=== PATIENT | male | born 1940 | race Caucasian/White ===

== ENCOUNTER 2016-10-12 09:38 | Observation (INO) | payer OTHER ==
[2016-10-12 10:16] LABS: % IMMATURE GRANULYOCYTES 0.4 % (0.0-1.1); ABSOLUTE IMMATURE GRANULOCYTES 0.02 10^3/uL (0.00-0.10); ADD DIFF? NO; ADD MORPH? NO; ADD SCAN? NO; ATYPICAL LYMPHOCYTE FLAG 0 (0-99); FRAGMENT RBC FLAG 0 (0-99); HEMATOCRIT 47.3 % (40.0-51.0); HEMOGLOBIN 16.9 g/dL (13.7-17.5); LEFT SHIFT FLG 0 (0-99); LIPEMIA HEMOLYSIS FLAG 90 (0-99); MEAN CELL HEMOGLOBIN 33.3 pg (27.9-34.1); MEAN CELL HEMOGLOBIN CONCENTR. 35.7 g/dL (32.4-36.7); MEAN CELL VOLUME 93.3 fL (81.5-99.8); MEAN PLATELET VOLUME 10.3 fL (8.7-11.7); PLATELET CLUMPS FLAG 10 (0-99); PLATELET COUNT 262 10^3/uL (150-400); RED BLOOD CELL COUNT 5.07 10^6/uL (4.40-6.38); RED CELL DISTRIBUTION WIDTH 12.8 % (11.5-15.2)
[2016-10-12 10:25] LABS: INR 1.18 (0.83-1.16)
[2016-10-12 10:26] LABS: APTT 34.6 SEC (23.0-38.0)
[2016-10-12 10:35] LABS: ALANINE AMINOTRANSFERASE 43 IU/L (21-72); ALBUMIN 4.4 g/dL (3.5-5.0); ALKALINE PHOSPHATASE 57 IU/L (38-126); ANION GAP 11 mEq/L (8-16); ASPARTATE AMINOTRANSFERASE 42 IU/L (17-59); BILIRUBIN,TOTAL 1.5 mg/dL (0.1-1.4); BILIRUBIN-CONJUGATED 0.2 mg/dL (0.0-0.5); BILIRUBIN-UNCONJUGATED 1.3 mg/dL (0.0-1.1); CALCIUM 9.6 mg/dL (8.5-10.4); CARBON DIOXIDE 25 mEq/l (22-31); CHLORIDE 105 mEq/L (97-110); CREATININE 0.9 mg/dL (0.7-1.3); GLOMERULAR FILTRATION RATE > 60; GLUCOSE 90 mg/dL (70-100); POTASSIUM 4.8 mEq/L (3.5-5.2); SODIUM 141 mEq/L (134-144); TOTAL PROTEIN 7.2 g/dL (6.3-8.2)
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
[2016-10-12] MEDS ORDERED: NS 1,000 ML IV ONE (11:00)
[2016-10-12] MEDS ORDERED: ONDANSETRON 4 MG/2 ML VIAL ONE (11:07)
[2016-10-12] MEDS ORDERED: ONDANSETRON 4 MG/2 ML VIAL IVP ONE (11:14)
[2016-10-12 12:20] LABS: % IMMATURE GRANULYOCYTES 0.2 % (0.0-1.1); ABSOLUTE IMMATURE GRANULOCYTES 0.01 10^3/uL (0.00-0.10); ADD DIFF? NO; ADD MORPH? NO; ADD SCAN? NO; ATYPICAL LYMPHOCYTE FLAG 0 (0-99); FRAGMENT RBC FLAG 0 (0-99); HEMATOCRIT 45.7 % (40.0-51.0); HEMOGLOBIN 16.1 g/dL (13.7-17.5); LEFT SHIFT FLG 0 (0-99); LIPEMIA HEMOLYSIS FLAG 90 (0-99); MEAN CELL HEMOGLOBIN 33.4 pg (27.9-34.1); MEAN CELL HEMOGLOBIN CONCENTR. 35.2 g/dL (32.4-36.7); MEAN CELL VOLUME 94.8 fL (81.5-99.8); MEAN PLATELET VOLUME 10.5 fL (8.7-11.7); PLATELET CLUMPS FLAG 0 (0-99); PLATELET COUNT 237 10^3/uL (150-400); RED BLOOD CELL COUNT 4.82 10^6/uL (4.40-6.38); RED CELL DISTRIBUTION WIDTH 12.6 % (11.5-15.2)
[2016-10-12 12:36] LABS: INR 1.37 (0.83-1.16); PROTIME(PATIENT) 16.9 SEC (12.0-15.0)
[2016-10-12 12:37] LABS: APTT 38.8 SEC (23.0-38.0)
[2016-10-12] MEDS ORDERED: HYDROmorphONE/DILAUDID 1 MG/ML SYR IVP PRN (12:57)
[2016-10-12] MEDS ORDERED: ONDANSETRON DISINTEGRATING 4 MG TAB PO PRN (12:57)
[2016-10-12] MEDS ORDERED: HYDROmorphONE/DILAUDID 2 MG TAB PO PRN (12:57)
[2016-10-12] MEDS ORDERED: ONDANSETRON 4 MG/2 ML VIAL IVP PRN (12:57)
[2016-10-12] MEDS ORDERED: ACETAMINOPHEN 325 MG TAB PO PRN (12:57)
[2016-10-12] MEDS ORDERED: NS 1,000 ML IV SCH (13:00)
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
[2016-10-12] MEDS ORDERED: ANTIVENIN CROTALIDAE FAB IV ONE (13:30)
[2016-10-12] MEDS ORDERED: NS IV ONE (13:30)
[2016-10-12] MEDS ORDERED: BISACODYL 10 MG SUPP PR PRN (13:55)
[2016-10-12] MEDS ORDERED: LACTULOSE 20 GM/30 ML UDCUP PO PRN (13:55)
[2016-10-12] MEDS ORDERED: MAGNESIUM HYDROXIDE 30 ML UDCUP PO PRN (13:55)
[2016-10-12] MEDS ORDERED: POLYETHYLENE GLYCOL 3350 17 GM PKT PO PRN (13:55)
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
[2016-10-12 17:37] LABS: INR 1.51 (0.83-1.16); PROTIME(PATIENT) 18.2 SEC (12.0-15.0)
[2016-10-12] MEDS ORDERED: ANTIVENIN CROTALIDAE FAB IV SCH (18:00)
[2016-10-12] MEDS ORDERED: NS IV SCH (18:00)
[2016-10-12] MEDS: ACYCLOVIR 400 MG TAB PO SCH (20:01)
[2016-10-12] MEDS: SENNOSIDES/DOCUSATE SODIUM TAB PO SCH (20:03)
[2016-10-12] MEDS: ANTIVENIN CROTALIDAE FAB IV SCH (20:30)
[2016-10-12] MEDS: NS IV SCH (20:30)
[2016-10-12] MEDS ORDERED: LORazepam 0.5 MG TAB PO PRN (20:58)
[2016-10-12] MEDS ORDERED: TAMSULOSIN HCL 0.4 MG CAP PO SCH (21:00)
[2016-10-12] MEDS ORDERED: ATORVASTATIN CALCIUM 40 MG TAB PO SCH (21:00)
[2016-10-12] MEDS: CYCLOSPORINE 0.05% 1 EACH BOX EACHEYE SCH (21:30)
[2016-10-12 22:51] LABS: INR 1.45 (0.83-1.16); PROTIME(PATIENT) 17.6 SEC (12.0-15.0)
[2016-10-12 22:52] LABS: APTT 38.8 SEC (23.0-38.0)
[2016-10-13] MEDS ORDERED: NS IV SCH
[2016-10-13] MEDS ORDERED: ANTIVENIN CROTALIDAE FAB IV SCH
[2016-10-13] MEDS: NS IV SCH ×2 (02:21→08:25)
[2016-10-13] MEDS: ANTIVENIN CROTALIDAE FAB IV SCH ×2 (02:21→08:25)
[2016-10-13 05:05] LABS: % IMMATURE GRANULYOCYTES 0.4 % (0.0-1.1); ABSOLUTE IMMATURE GRANULOCYTES 0.03 10^3/uL (0.00-0.10); ADD DIFF? NO; ADD MORPH? NO; ADD SCAN? NO; ATYPICAL LYMPHOCYTE FLAG 0 (0-99); FRAGMENT RBC FLAG 0 (0-99); HEMATOCRIT 40.5 % (40.0-51.0); HEMOGLOBIN 14.2 g/dL (13.7-17.5); LEFT SHIFT FLG 0 (0-99); LIPEMIA HEMOLYSIS FLAG 90 (0-99); MEAN CELL HEMOGLOBIN 33.6 pg (27.9-34.1); MEAN CELL HEMOGLOBIN CONCENTR. 35.1 g/dL (32.4-36.7); MEAN CELL VOLUME 95.7 fL (81.5-99.8); MEAN PLATELET VOLUME 10.3 fL (8.7-11.7); PLATELET CLUMPS FLAG 0 (0-99); PLATELET COUNT 215 10^3/uL (150-400); RED BLOOD CELL COUNT 4.23 10^6/uL (4.40-6.38); RED CELL DISTRIBUTION WIDTH 12.9 % (11.5-15.2)
[2016-10-13 05:09] LABS: INR 1.35 (0.83-1.16); PROTIME(PATIENT) 16.7 SEC (12.0-15.0)
[2016-10-13 05:10] LABS: APTT 38.4 SEC (23.0-38.0)
[2016-10-13 05:21] LABS: ALANINE AMINOTRANSFERASE 33 IU/L (21-72); ALKALINE PHOSPHATASE 46 IU/L (38-126); ANION GAP 7 mEq/L (8-16); ASPARTATE AMINOTRANSFERASE 31 IU/L (17-59); BILIRUBIN,TOTAL 1.8 mg/dL (0.1-1.4); CALCIUM 8.3 mg/dL (8.5-10.4); CARBON DIOXIDE 24 mEq/l (22-31); CHLORIDE 107 mEq/L (97-110); CREATININE 0.9 mg/dL (0.7-1.3); GLOMERULAR FILTRATION RATE > 60; GLUCOSE 86 mg/dL (70-100); POTASSIUM 4.3 mEq/L (3.5-5.2); SODIUM 138 mEq/L (134-144); TOTAL PROTEIN 5.5 g/dL (6.3-8.2)
[2016-10-13 08:30] VITALS: TEMP 97.7
[2016-10-13] MEDS ORDERED: OMEGA-3 FATTY ACIDS 1,000 MG CAP PO SCH (09:00)
[2016-10-13] MEDS ORDERED: Herbals/Supplements -Info Only PO SCH (09:00)
[2016-10-13] MEDS ORDERED: PANTOPRAZOLE SODIUM 40 MG TAB PO SCH (09:00)
--- NOTE | 2016-10-13 09:21 | PDINTPN ---
Pediatric Acute Care Unit Nurse Progress Note Assessment/Plan: Assessment: * Rattle snake bite-3rd maintenance infusion of CroFab currently infusing. Hand is markedly improved. INR is slightly high hand fibrinogen remained stable. Plan: Continue infusion of CroFab Recheck INR and fibrinogen Anticipate discharge home today Subjective: Resting comfortably. Left hand feels markedly improved, with minimal pain. Wishes to go home Objective: Vital Signs Temp Pulse Resp BP Pulse Ox 36.5 C 41 L 14 112/63 97 10/13/16 07:00 10/13/16 08:00 10/13/16 08:00 10/13/16 08:00 10/13/16 08:00 Laboratory Results 10/13/16 04:45 10/13/16 04:45 10/12/16 10/13/16 10/14/16 05:59 05:59 05:59 Intake Total 3800 Output Total 200 Balance 3600 PT 16.7 SEC (12.0-15.0) H 10/13/16 04:45 INR 1.35 (0.83-1.16) H 10/13/16 04:45 Physical Exam - Physical Exam General Appearance: WD/WN, alert, no apparent distress EENT: PERRL/EOMI, normal ENT inspection, pharynx normal, TMs normal Neck: non-tender, full range of motion, supple, normal inspection Respiratory: chest non-tender, lungs clear, normal breath sounds Cardiac/Chest: normal peripheral pulses, regular rate, rhythm Peripheral Pulses: 2+: carotid (R), carotid (L), femoral (R), femoral (L), dorsalis-pedis (R), dorsalis-pedis (L) Abdomen: normal bowel sounds, non-tender, soft Male Genitalia: deferred Rectal: deferred Skin: normal color, warm/dry Extremities: other (Left hand with marked improvement in swelling.) Neuro/Psych: no motor/sensory deficits, alert, normal mood/affect, oriented x 3 ICD10 Worksheet Patient Problems: Problems Problem Status Onset Snake bite Acute
[2016-10-13] MEDS: ACYCLOVIR 400 MG TAB PO SCH (10:58)
[2016-10-13] MEDS: SENNOSIDES/DOCUSATE SODIUM TAB PO SCH (10:59)
[2016-10-13] MEDS: CYCLOSPORINE 0.05% 1 EACH BOX EACHEYE SCH (10:59)
[2016-10-13 11:44] LABS: INR 1.23 (0.83-1.16); PROTIME(PATIENT) 15.5 SEC (12.0-15.0)
[2016-10-13 11:47] VITALS: BP 123/53; PULSE 48; RESP 20; O2SAT 94
--- NOTE | 2016-10-13 16:55 | PDDCSUM ---
Discharge Summary Discharge Summary: DISCHARGE SUMMARY FOLLOW-UP ITEMS: PCP follow-up next week, possibly outpatient labs pending clinical course DATE OF ADMISSION: 10/12/2016 DATE OF DISCHARGE: 10/13/2016 DISCHARGE DIAGNOSES: 1. Acute rattlesnake bite 2. Acute coagulopathy CONSULTATIONS: Toxicology PROCEDURES / IMAGING: None CHIEF COMPLAINT: Acute hand pain SUBJECTIVE: Patient's hand pain significantly improved, swelling reduced PHYSICAL EXAM ON DISCHARGE: Systolic blood pressure 120, heart rate 40 to 50, afebrile overnight, satting well on room air, alert awake oriented x3, sensation intact in his left upper extremity, full range of motion of fingers and wrist without pain, mild edema over the dorsal aspect of his left hand without any focal tenderness, no erythema LABS ON DISCHARGE: White blood count 8400, platelets [id number], hemoglobin 14.2, INR 1.23, PTT 37, fibrinogen 294, total bilirubin 1.8, CPK 85, creatinine 0.9 HOSPITAL COURSE BY PROBLEM: 1. Acute rattlesnake bite. The patient experienced acute rattlesnake bite on his left hand in the anatomic snuffbox. He immediately experienced edema, pain , limited range of motion of his fingers secondary to swelling and pain. He also experienced mild coagulopathy with INR rising to 1.51 and PTT of 39. Poison Control was contacted, and they recommended antivenom. The patient received antivenom, and his INR trended towards normal. Patient's swelling and pain also improved. The patient stabilized and is safe for discharge home with outpatient follow-up. Follow-up consultation instructions were faxed from poison Control in provided to the patient. The patient has no evidence of local muscle necrosis, and he is not requesting any pain medication time discharge. DISCHARGE MEDICATIONS: Please see official discharge medication reconciliation sheet in chart , Tylenol as needed. DISCHARGE INSTRUCTIONS: Please follow up with primary care provider next week. Outpatient laboratory values may be obtained if the area does not appear to be affectively healed.
[2016-10-14] MEDS ORDERED: NON-FORMULARY NEW DRUG (Omeprazole [Prilosec 20 Mg] 20 MG) PO SCH (09:00)
== END 2016-10-13 12:42 | disposition home or self-care (01) ==
LOC: F2N 12:25
PROVIDERS: ADMIT Internal Medicine; ATTEND Internal Medicine
PROC: 3E0304Z Introduction of Serum, Toxoid and Vaccine into Peripheral Vein, Open Approach (ICD-10-PCS; principal; 2016-10-12)
DX: T63.011A Toxic effect of rattlesnake venom, accidental (unintentional), initial encounter (principal); M79.642 Pain in left hand; D68.8 Other specified coagulation defects; Y93.01 Activity, walking, marching and hiking; Y92.828 Other wilderness area as the place of occurrence of the external cause; E78.5 Hyperlipidemia, unspecified; N40.0 Benign prostatic hyperplasia without lower urinary tract symptoms; K22.70 Barrett's esophagus without dysplasia; Z96.643 Presence of artificial hip joint, bilateral
CPT/HCPCS: 96374; 96375; 97165; 99285; G0378; J0840; J2405